=== PATIENT | female | born 1995 | race Hispanic/Latino ===

== ENCOUNTER 2021-06-08 04:00 | Emergency (ER) | payer OTHER ==
[2021-06-08 05:05] LABS: HIV (1/2) Antibody/Antigen Non-Reactive (NonReactive); HIV 1/2 INDEX 0.12 S/CO (<1.00)
[2021-06-08 13:00] LABS: Hep C IgG Ab Non-Reactive (NonReactive); Hep C Index 0.06 S/CO (0-0.79)
[2021-06-08 14:42] LABS: HBSAB Concentration 2628.08 mIU/mL; Hep B Surf AB Reactive (NonReactive)
== END 2021-06-08 04:20 | disposition home or self-care (01) ==
LOC: CSHERS 04:00
DX: Z77.21 Contact with and (suspected) exposure to potentially hazardous body fluids (principal)
CPT/HCPCS: 86706; 86803; 87389; 99283

== ENCOUNTER 2021-12-02 18:57 | Day surgery (SDC) | payer BC, MEDICAID ==
[2021-12-02] MEDS ORDERED: hydrALAZINE 20 MG/ML VIAL SLOW IVP PRN (19:44)
[2021-12-02] MEDS ORDERED: Acetaminophen 500 MG TAB PO SCH (20:15)
[2021-12-02 20:45] VITALS: BMI 24.7
[2021-12-02 20:59] LABS: Bilirubin Neg (Negative); Blood, Urine Negative (Negative); Clarity Clear (Clear); Glucose, Urine (Dipstick) Normal (Negative); Ketone, Urine Negative (Negative); Leukocyte Negative (Negative); Nitrite Negative (Negative); Protein, Urine (Dipstick) Negative (Neg-Trace); Urobilinogen Normal mg/dL (Less than 2)
[2021-12-02 21:02] LABS: Urine Culture Reflex No No
[2021-12-02 21:03] LABS: Bacteria/HPF None Seen HPF (None Seen); RBC/HPF 0-3 HPF (0-3); Squamous Epithelial 0-3 HPF (0-3); WBC/HPF 0-3 HPF (0-3)
== END 2021-12-02 21:40 | disposition home or self-care (01) ==
LOC: CSHLD/OP 18:57
PROVIDERS: ATTEND Obstetrics & Gynecology
DX: O99.891 Other specified diseases and conditions complicating pregnancy (principal); R10.32 Left lower quadrant pain; Z3A.23 23 weeks gestation of pregnancy; Z88.8 Allergy status to other drugs, medicaments and biological substances; Z91.018 Allergy to other foods
CPT/HCPCS: 81001

== ENCOUNTER 2022-01-27 13:00 | Day surgery (SDC) | payer BC, OTHER ==
[2022-01-27 13:46] VITALS: BMI 26.9
[2022-01-27] MEDS ORDERED: hydrALAZINE 20 MG/ML VIAL SLOW IVP PRN (14:14)
[2022-01-27 14:35] LABS: Bilirubin Neg (Negative); Blood, Urine Negative (Negative); Clarity Clear (Clear); Glucose, Urine (Dipstick) Normal (Negative); Ketone, Urine Negative (Negative); Leukocyte Negative (Negative); Nitrite Negative (Negative); Protein, Urine (Dipstick) Negative (Neg-Trace); Specific Gravity, Urine 1.015 (1.002-1.036); Urobilinogen Normal mg/dL (Less than 2)
[2022-01-27 14:43] LABS: Squamous Epithelial 0-3 HPF (0-3); WBC/HPF None Seen HPF (0-3)
[2022-01-27 14:44] LABS: Bacteria/HPF Rare-Few HPF (None Seen); RBC/HPF 0-3 HPF (0-3)
[2022-01-27 15:04] LABS: SARS-CoV-2 NAA Rapid Test DETECTED (NotDetected)
== END 2022-01-27 16:15 | disposition home health service (06) ==
LOC: CSHLD/OP 13:00
PROVIDERS: ATTEND Obstetrics & Gynecology
DX: O98.513 Other viral diseases complicating pregnancy, third trimester (principal); U07.1 COVID-19; O47.03 False labor before 37 completed weeks of gestation, third trimester; O99.891 Other specified diseases and conditions complicating pregnancy; R35.0 Frequency of micturition; Z3A.31 31 weeks gestation of pregnancy; Z88.8 Allergy status to other drugs, medicaments and biological substances; Z91.018 Allergy to other foods; Z28.310 Unvaccinated for COVID-19; Z28.9 Immunization not carried out for unspecified reason
CPT/HCPCS: 81001; 99283; U0002

== ENCOUNTER 2022-02-10 04:41 | Day surgery (SDC) | payer OTHER ==
[2022-02-10] MEDS ORDERED: hydrALAZINE 20 MG/ML VIAL SLOW IVP PRN (05:55)
[2022-02-10] MEDS ORDERED: Acetaminophen 500 MG TAB PO SCH (06:00)
[2022-02-10 06:45] VITALS: BMI 27.1
[2022-02-10 06:47] LABS: FFN Internal QC Analyzer PASS (PASS); FFN Internal QC Cassette PASS (PASS); Fetal Fibronectin Negative (Negative)
[2022-02-10 07:28] LABS: Bilirubin Neg (Negative); Blood, Urine Negative (Negative); Clarity Clear (Clear); Glucose, Urine (Dipstick) Normal (Negative); Ketone, Urine Negative (Negative); Leukocyte Negative (Negative); Nitrite Negative (Negative); Protein, Urine (Dipstick) Negative (Neg-Trace); Specific Gravity, Urine 1.005 (1.002-1.036); Urobilinogen Normal mg/dL (Less than 2)
[2022-02-10 07:30] LABS: Urine Culture Reflex No No
[2022-02-10 07:56] LABS: Bacteria/HPF None Seen HPF (None Seen); RBC/HPF None Seen HPF (0-3); Squamous Epithelial None Seen HPF (0-3); WBC/HPF None Seen HPF (0-3)
== END 2022-02-10 10:20 | disposition home or self-care (01) ==
LOC: CSHLD/OP 04:41
PROVIDERS: ATTEND Obstetrics & Gynecology
DX: O47.03 False labor before 37 completed weeks of gestation, third trimester (principal); Z3A.33 33 weeks gestation of pregnancy; Z86.16 Personal history of COVID-19; Z79.899 Other long term (current) drug therapy; Z88.8 Allergy status to other drugs, medicaments and biological substances
CPT/HCPCS: 81001; 82731; 87480; 87510; 87660; 99284

== ENCOUNTER 2022-02-28 05:59 | Inpatient (IN) | payer BC, OTHER ==
[2022-02-28 07:24] LABS: Fetal Membranes Rupture RUPTURE DETECTED (No Rupture)
[2022-02-28 07:27] VITALS: BMI 28.0
[2022-02-28] MEDS ORDERED: Ampicillin 2 GM VIAL ONE (08:15)
[2022-02-28] MEDS ORDERED: Sodium Chloride 0.9% 100 ML ONE ×2 (08:15→08:43)
[2022-02-28] MEDS ORDERED: Ibuprofen 800 MG TAB PO PRN (08:23)
[2022-02-28] MEDS ORDERED: Butorphanol Tartrate 1 MG/ML VIAL SLOW IVP PRN (08:23)
[2022-02-28] MEDS ORDERED: Ondansetron PF 4 MG/2 ML Vial IVP PRN ×2 (08:23→13:45)
[2022-02-28] MEDS ORDERED: Acetaminophen 500 MG TAB PO PRN (08:23)
[2022-02-28] MEDS ORDERED: Lidocaine 1% (PF) 30 ML VIAL SC PRN (08:23)
[2022-02-28] MEDS ORDERED: Docusate 100 MG CAP PO PRN (08:23)
[2022-02-28] MEDS ORDERED: Promethazine HCl 25 MG/ML VIAL IM PRN (08:23)
[2022-02-28] MEDS ORDERED: HYDROcodone/Acetaminophen 5/325 mg Tablet PO PRN ×4 (08:23→13:45)
[2022-02-28] MEDS ORDERED: Diphenoxylate HCl/Atropine Tablet PO PRN ×2 (08:23)
[2022-02-28] MEDS ORDERED: Misoprostol 200 MCG TAB PR PRN (08:23)
[2022-02-28] MEDS ORDERED: hydrALAZINE 20 MG/ML VIAL SLOW IVP PRN ×2 (08:23→13:45)
[2022-02-28] MEDS ORDERED: NS w/ Oxytocin 30 units 500 ML IV SCH ×2 (08:30→13:45)
[2022-02-28] MEDS ORDERED: Lactated Ringer's 1,000 ML IV SCH (08:30)
[2022-02-28] MEDS ORDERED: Azithromycin 500 MG VIAL ONE (08:43)
[2022-02-28 08:47] LABS: Hemoglobin 11.7 g/dL (12.0-15.5); Mean Corpuscular HGB CONC 35.7 g/dL (32.0-36.0); Mean Corpuscular Hemoglobin 29.7 pg (27.0-33.0); Mean Corpuscular Volume 83.2 fl (81.6-98.3); Mean Platelet Volume 13.1 fl (7.4-10.4); Platelet Count 177 10x3/uL (150-450); RBC Distribution Width 14.5 % (11.5-14.5); Red Blood Cell (RBC) Count 3.94 10x6/uL (3.90-5.03); White Blood Cell (WBC) Count 8.3 10x3/uL (3.5-10.5)
[2022-02-28] MEDS ORDERED: Azithromycin 500 MG in Sodium Chloride 0.9% 250 ML 250 ML IVPB SCH (09:00)
[2022-02-28] MEDS ORDERED: diphenhydrAMINE 50 MG/ML VIAL ONE (09:15)
[2022-02-28 09:18] LABS: Syphilis Antibody Nonreactive (Nonreactive); Syphilis Antibody Index 0.04 S/CO (<1.00 Non-Reactive)
[2022-02-28 09:19] LABS: HIV (1/2) Antibody/Antigen Non-Reactive (NonReactive); HIV 1/2 INDEX 0.08 S/CO (<1.00); Hep B Surf Ag Non-Reactive S/CO (NonReactive)
[2022-02-28] MEDS ORDERED: Ampicillin 2 GM in Sodium Chloride 0.9% 100 ML IVPB SCH (12:00)
[2022-02-28] MEDS ORDERED: Lanolin Ointment 7 GM TUBE TOP PRN (13:45)
[2022-02-28] MEDS ORDERED: Milk Of Magnesia 30 ML UDCUP PO PRN (13:45)
[2022-02-28] MEDS ORDERED: diphenhydrAMINE 25 MG CAP PO PRN (13:45)
[2022-02-28] MEDS ORDERED: Benzocaine-Menthol 82.5 ML CAN TOP PRN (13:45)
[2022-02-28] MEDS ORDERED: Bisacodyl 10 MG SUPP PR PRN (13:45)
[2022-02-28] MEDS ORDERED: Misoprostol 200 MCG TAB VAG PRN (13:45)
[2022-02-28] MEDS ORDERED: Boostrix 0.5 ML (Tdap) VIAL (>/=7 yrs of age) IM ONE (13:45)
[2022-02-28] MEDS ORDERED: Zolpidem Tartrate 5 MG TAB PO PRN (13:45)
[2022-02-28] MEDS ORDERED: Preparation H Ointment 28 GM TUBE PR PRN (13:45)
[2022-02-28] MEDS ORDERED: Witch Hazel-Glycerin 1 EACH JAR TOP PRN (13:46)
[2022-02-28] MEDS ORDERED: Acetaminophen/Codeine 30-300mg Tablet PO SCH (15:45)
[2022-02-28] MEDS ORDERED: Acetaminophen/Codeine 30-300mg Tablet PO PRN (17:06)
[2022-02-28] MEDS: Ferrous Sulfate 325 MG TAB PO SCH (18:00)
[2022-02-28] MEDS: Ibuprofen 800 MG TAB PO SCH (21:18)
[2022-02-28] MEDS: Docusate 100 MG CAP PO SCH (21:18)
[2022-03-01] MEDS: Acetaminophen/Codeine 30-300mg Tablet PO PRN ×2 (05:13→12:27)
[2022-03-01] MEDS: Ibuprofen 800 MG TAB PO SCH ×3 (05:14→21:04)
[2022-03-01] MEDS: Ferrous Sulfate 325 MG TAB PO SCH ×2 (07:12→07:13)
[2022-03-01] MEDS: Docusate 100 MG CAP PO SCH ×2 (08:59→21:04)
[2022-03-01] MEDS: Prenatal Vitamin 1 TAB PO SCH (08:59)
[2022-03-01 11:24] LABS: Hemoglobin 9.6 g/dL (12.0-15.5); Mean Corpuscular HGB CONC 35.4 g/dL (32.0-36.0); Mean Corpuscular Hemoglobin 30.5 pg (27.0-33.0); Mean Platelet Volume 12.6 fl (7.4-10.4); Platelet Count 149 10x3/uL (150-450); RBC Distribution Width 14.6 % (11.5-14.5); Red Blood Cell (RBC) Count 3.15 10x6/uL (3.90-5.03); White Blood Cell (WBC) Count 10.6 10x3/uL (3.5-10.5)
[2022-03-02] MEDS: Ibuprofen 800 MG TAB PO SCH ×2 (05:28→14:39)
[2022-03-02 08:09] VITALS: BP 111/66; TEMP 98
[2022-03-02] MEDS: Docusate 100 MG CAP PO SCH (08:59)
[2022-03-02] MEDS: Prenatal Vitamin 1 TAB PO SCH (08:59)
[2022-03-02] MEDS: Ferrous Sulfate 325 MG TAB PO SCH ×2 (08:59→17:00)
== END 2022-03-02 17:20 | disposition home or self-care (01) | DRG 805 ==
LOC: CSHLD/OP 05:59 → CSHLD 08:12 → CSHPED 16:30
PROVIDERS: ADMIT Obstetrics & Gynecology; ATTEND Obstetrics & Gynecology
PROC: 10D07Z6 Extraction of Products of Conception, Vacuum, Via Natural or Artificial Opening (ICD-10-PCS; principal; 2022-02-28)
PROC: 0W8NXZZ Division of Female Perineum, External Approach (ICD-10-PCS; 2022-02-28)
DX: O42.913 Preterm premature rupture of membranes, unspecified as to length of time between rupture and onset of labor, third trimester (principal); O60.14X0 Preterm labor third trimester with preterm delivery third trimester, not applicable or unspecified; Z37.0 Single live birth; Z3A.35 35 weeks gestation of pregnancy; Z20.822 Contact with and (suspected) exposure to COVID-19; Z86.16 Personal history of COVID-19; Z79.899 Other long term (current) drug therapy; Z79.82 Long term (current) use of aspirin; Z88.8 Allergy status to other drugs, medicaments and biological substances; Z88.1 Allergy status to other antibiotic agents; Z91.018 Allergy to other foods; O32.8XX0 Maternal care for other malpresentation of fetus, not applicable or unspecified
CPT/HCPCS: 36415; 84112; 85027; 86780; 86850; 86900; 86901; 87340; 87389; 88307; 99285; J0290; J0456; J1200; J2590; J3490; J7050

== ENCOUNTER 2022-03-05 21:07 | Inpatient (IN) | payer BC, OTHER ==
[2022-03-05] MEDS ORDERED: Magnesium 2 GM/50 ML BAG (IN WATER) ONE (21:45)
[2022-03-05] MEDS ORDERED: hydrALAZINE 20 MG/ML VIAL ONE (21:45)
[2022-03-05 21:48] LABS: #Eosinphils 0.4 10x3/uL (0.0-0.5); #Monocytes 0.5 10x3/uL (0.0-1.1); #Neutrophils 4.9 10x3/uL (1.5-8.4); %Basophils 0.5 % (0.0-2.0); %Eosinophils 5.3 % (0.0-6.0); %Lymphocytes 26.6 % (18.0-47.0); %Monocytes 6.3 % (0.0-10.0); %Neutrophils 60.9 % (40.0-75.0); Hemoglobin 10.4 g/dL (12.0-15.5); Mean Corpuscular HGB CONC 33.4 g/dL (32.0-36.0); Mean Corpuscular Hemoglobin 29.3 pg (27.0-33.0); Mean Corpuscular Volume 87.6 fl (81.6-98.3); Mean Platelet Volume 11.7 fl (7.4-10.4); Platelet Count 212 10x3/uL (150-450); Red Blood Cell (RBC) Count 3.55 10x6/uL (3.90-5.03); White Blood Cell (WBC) Count 8.1 10x3/uL (3.5-10.5)
[2022-03-05 22:02] LABS: ALT (SGPT) 34 U/L (8-55); AST (SGOT) 29 U/L (5-34); Albumin 3.5 g/dL (3.5-5.0); Alkaline Phosphatase 65 U/L (40-110); Anion Gap 13 mmol/L (10-20); BUN (Urea Nitrogen) 8 mg/dL (7.0-18.7); Bilirubin, Total 0.4 mg/dL (0.2-1.2); Calc. Creatinine Clearance 0 mL/min (70-130); Carbon Dioxide 22 mmol/L (22-29); Chloride 111 mmol/L (98-107); Estimated GFR 127; Globulin 2.9 g/dL (2.4-3.5); Glucose 79 mg/dL (70-105); Potassium 3.6 mmol/L (3.5-5.1); Protein, Total 6.4 g/dL (6.0-8.3); Sodium 142 mmol/L (136-145)
[2022-03-05] MEDS ORDERED: Promethazine HCl 25 MG/ML VIAL IM PRN (22:17)
[2022-03-05] MEDS ORDERED: Calcium Gluc 4.6 MEQ/10 ML (100 MG/ML) SLOW IVP PRN (22:17)
[2022-03-05] MEDS ORDERED: Lorazepam 2 MG/ML VIAL SLOW IVP PRN (22:17)
[2022-03-05] MEDS ORDERED: Ondansetron PF 4 MG/2 ML Vial IVP PRN (22:17)
[2022-03-05] MEDS ORDERED: hydrALAZINE 20 MG/ML VIAL SLOW IVP PRN ×2 (22:17)
[2022-03-05] MEDS ORDERED: Magnesium Sulfate 20 gm/500 ml 20 GM/500 ML BAG IVPB SCH (22:30)
[2022-03-05] MEDS ORDERED: Magnesium Sulfate 20 gm/500 ml 20 GM/500 ML BAG ONE (22:30)
[2022-03-06 00:02] LABS: Creatinine, Urine Less than 20.00 mg/dL (47-110); Protein, Urine Random Quant Less than 10 mg/dL (1-14)
[2022-03-06] MEDS: Acetaminophen 500 MG TAB PO PRN ×2 (11:42→21:19)
[2022-03-06] MEDS: Ibuprofen 800 MG TAB PO PRN (11:43)
[2022-03-07] MEDS: Ibuprofen 800 MG TAB PO PRN (02:34)
[2022-03-07 08:24] VITALS: BP 113/67; TEMP 98.6
== END 2022-03-07 10:30 | disposition home or self-care (01) | DRG 776 ==
LOC: CSHERS 21:07 → CSHLD 22:08 → CSHPED 03-06 12:00
PROVIDERS: ADMIT Obstetrics & Gynecology; ATTEND Obstetrics & Gynecology
DX: O14.15 Severe pre-eclampsia, complicating the puerperium (principal); F41.9 Anxiety disorder, unspecified; O99.345 Other mental disorders complicating the puerperium; Z88.1 Allergy status to other antibiotic agents; Z88.8 Allergy status to other drugs, medicaments and biological substances; Z91.018 Allergy to other foods
CPT/HCPCS: 36415; 71045; 80053; 82570; 83880; 84156; 84484; 85025; 93005; J0360; J3475

== ENCOUNTER 2023-02-27 13:22 | Emergency (ER) | payer BC, OTHER ==
[2023-02-27 15:34] LABS: Bilirubin Neg (Negative); Blood, Urine Negative (Negative); Clarity Clear (Clear); Glucose, Urine (Dipstick) Normal (Negative); Ketone, Urine Negative (Negative); Leukocyte Negative (Negative); Nitrite Negative (Negative); Protein, Urine (Dipstick) Negative (Neg-Trace); Urobilinogen Normal mg/dL (Less than 2)
[2023-02-27 15:43] LABS: Pregnancy Test - Urine (BHCG) Negative (Negative); Pregu Control Background? CLEAR/WHITE (CLR/WHITE); Pregu Control Bar Appear? YES (CONTROL BAR)
[2023-02-27 16:08] LABS: CAUTI Indications for Culture Pelvic or flank pain; RBC/HPF 0-3 HPF (0-3); Squamous Epithelial 0-3 HPF (0-3); WBC/HPF 0-3 HPF (0-3)
[2023-02-27 16:09] LABS: Bacteria/HPF Rare-Few HPF (None Seen)
[2023-02-27 16:10] LABS: Urine Culture Reflex No No
[2023-02-27] MEDS ORDERED: Ketorolac Tromethamine 30 MG/ML VIAL ONE (16:58)
== END 2023-02-27 17:09 | disposition home or self-care (01) ==
LOC: CSHERS 13:22
DX: R07.9 Chest pain, unspecified (principal); R42 Dizziness and giddiness
CPT/HCPCS: 71045; 81001; 81025; 93005; 96372; J1885

== ENCOUNTER 2023-05-30 23:57 | Emergency (ER) | payer BC, SELFPAY | END 2023-05-31 01:24 | disposition home or self-care (01) | LOC: CSHERS 23:57 | DX: S61.212A Laceration without foreign body of right middle finger without damage to nail, initial encounter (principal); W26.0XXA Contact with knife, initial encounter | CPT/HCPCS: 12001; 99282 ==

== ENCOUNTER 2023-12-11 06:49 | Day surgery (SDC) | payer OTHER ==
[2023-12-08 12:11] VITALS: BMI 24.7
[2023-12-11] MEDS ORDERED: Lidocaine 1% PF 5 ML VIAL ONE (08:31)
[2023-12-11] MEDS ORDERED: PROPOFOL 40 ML ONE (08:31)
== END 2023-12-11 09:57 | disposition home or self-care (01) ==
LOC: CSHSDC 06:49
PROVIDERS: ATTEND Surgery
PROC: 0DJ08ZZ Inspection of Upper Intestinal Tract, Via Natural or Artificial Opening Endoscopic (ICD-10-PCS; principal; 2023-12-11)
DX: R10.11 Right upper quadrant pain (principal); F41.9 Anxiety disorder, unspecified; Z79.899 Other long term (current) drug therapy; Z88.1 Allergy status to other antibiotic agents; Z88.8 Allergy status to other drugs, medicaments and biological substances; Z91.018 Allergy to other foods
CPT/HCPCS: J2704

== ENCOUNTER 2024-05-28 21:45 | Emergency (ER) | payer MEDICAID, OTHER ==
[2024-05-28] MEDS ORDERED: Ondansetron PF 4 MG/2 ML Vial ONE (22:00)
[2024-05-28 22:39] LABS: Bilirubin Neg (Negative); Blood, Urine Negative (Negative); Clarity Slightly Cloudy (Clear); Glucose, Urine (Dipstick) Normal (Negative); Ketone, Urine 150 mg/dL (Negative); Leukocyte Negative (Negative); Nitrite Negative (Negative); Protein, Urine (Dipstick) 30 mg/dl (Neg-Trace); Specific Gravity, Urine 1.025 (1.005-1.030); Urobilinogen Normal mg/dL (Less than 2)
[2024-05-28 23:19] LABS: CAUTI Indications for Culture Pregnancy; RBC/HPF 0-3 HPF (0-3); Squamous Epithelial 0-3 HPF (0-3); WBC/HPF 0-3 HPF (0-3)
[2024-05-28 23:20] LABS: Bacteria/HPF 2+ HPF (None Seen); Mucous/LPF 1+ LPF (<2+)
[2024-05-28 23:23] LABS: Urine Culture Reflex Yes Yes
== END 2024-05-28 23:41 | disposition home or self-care (01) ==
LOC: CSHERS 21:45
DX: O21.9 Vomiting of pregnancy, unspecified (principal); O99.891 Other specified diseases and conditions complicating pregnancy; Z3A.08 8 weeks gestation of pregnancy
CPT/HCPCS: 81001; 84702; 87086; 96361; 96374; J2405

== ENCOUNTER 2024-08-26 11:45 | Emergency (ER) | payer OTHER ==
[2024-08-26 13:06] LABS: #Basophils Less than 0.03 10x3/uL (0.0-0.2); #Eosinophils 0.09 10x3/uL (0.0-0.5); #Monocytes 0.38 10x3/uL (0.0-1.1); #Neutrophils 4.16 10x3/uL (1.5-8.4); %Basophils 0.3 % (0.0-2.0); %Eosinophils 1.4 % (0.0-6.0); %Lymphocytes 27.2 % (18.0-47.0); %Monocytes 5.9 % (0.0-10.0); Hemoglobin 11.8 g/dL (12.0-15.5); Mean Corpuscular HGB CONC 34.7 g/dL (32.0-36.0); Mean Corpuscular Hemoglobin 30.6 pg (27.0-33.0); Mean Corpuscular Volume 88.3 fL (81.6-98.3); Mean Platelet Volume 11.9 fL (7.4-10.4); Platelet Count 192 10x3/uL (150-450); RBC Distribution Width 13.6 % (11.5-14.5); Red Blood Cell (RBC) Count 3.85 10x6/uL (3.90-5.03)
[2024-08-26 13:26] LABS: ALT (SGPT) 11 U/L (Less than 34); AST (SGOT) 14 U/L (11-34); Albumin 3.3 g/dL (3.1-4.5); Alkaline Phosphatase 34 U/L (40-110); Anion Gap 13 mmol/L (10-20); BUN (Urea Nitrogen) 4 mg/dL (7.0-18.7); Bilirubin, Total 0.3 mg/dL (0.3-1.2); Calc. Creatinine Clearance 0 mL/min (70-130); Calcium 8.5 mg/dL (7.8-10.44); Carbon Dioxide 18 mmol/L (22-29); Chloride 110 mmol/L (98-107); Estimated GFR 136; Globulin 3.3 g/dL (2.4-3.5); Glucose 72 mg/dL (70-105); Lipase 7 U/L (8-78); Potassium 3.6 mmol/L (3.5-5.1); Protein, Total 6.6 g/dL (6.0-8.3); Sodium 137 mmol/L (136-145)
[2024-08-26 13:29] LABS: Troponin I Less than 0.010 ng/mL (< 0.028)
== END 2024-08-26 13:58 | disposition home or self-care (01) ==
LOC: CSHERS 11:45
DX: O99.891 Other specified diseases and conditions complicating pregnancy (principal); M94.0 Chondrocostal junction syndrome [Tietze]; Z3A.21 21 weeks gestation of pregnancy; Z79.82 Long term (current) use of aspirin
CPT/HCPCS: 36415; 71045; 80053; 83690; 84484; 85025; 93005